=== PATIENT | male | born 1970 ===

== ENCOUNTER 2020-06-09 01:25 | Emergency (ER) | payer MEDICARE ==
[2020-06-09 08:23] VITALS: BP 152/93
--- NOTE | 2020-06-09 09:43 | Emergency Department Report ---
HPI - General Chief Complaint: Dyspnea/Respdistress Time Seen by Provider: 06/09/20 09:22 - HPI HPI: Room 19 The patient is a 50-year-old male present with a chief complaint of needing home O2. The patient was admitted to this hospital for COVID-19 pneumonia, stayed in the hospital for approximately 15 days and discharged yesterday. The patient states when he went home his oxygen tank had not been delivered to him as scheduled in his oxygen level was running low. The patient states he felt short of breath without the oxygen but in the ED with supplemental O2 he feels like his normal self. ED Past Medical Hx - Past Medical History Hx Hypertension: Yes Hx Arthritis: Yes Hx Asthma: Yes - Surgical History Past Surgical History?: Yes Hx Cholecystectomy: Yes (2015) - Family History Family history: no significant - Social History Smoking Status: Never Smoker Substance Use Type: None - Medications Home Medications: Home Medications Medication Instructions Recorded Confirmed Last Taken Type Aspirin 325 mg PO DAILY 05/27/20 05/27/20 Unknown History Baclofen 20 mg PO TID 05/27/20 05/27/20 Unknown History Chlorthalidone [Thalitone] 25 mg PO QDAY 05/27/20 05/27/20 Unknown History Gabapentin [Neurontin] 800 mg PO TID 05/27/20 05/27/20 Unknown History NexIUM 40 mg PO DAILY 05/27/20 05/27/20 Unknown History Nortriptyline [Pamelor] 25 mg PO HS 05/27/20 05/27/20 Unknown History Potassium Chloride [K-Dur] 20 meq PO DAILY 05/27/20 05/27/20 Unknown History Tamsulosin [Flomax] 0.4 mg PO DAILY 05/27/20 05/27/20 Unknown History ALBUTEROL NEB's [Proventil 0.083% 2.5 mg IH Q4HRT PRN #1 nebu 06/08/20 Unknown Rx NEBS] Acetaminophen [Acetaminophen TAB] 650 mg PO Q4H PRN tablet 06/08/20 Unknown Rx Arformoterol Nebu [Brovana Nebu] 15 mcg IH Q12HRT #1 ml 06/08/20 Unknown Rx Budesonide [Pulmicort Respules] 0.5 mg IH Q12HRT #1 nebu 06/08/20 Unknown Rx busPIRone [Buspar] 10 mg PO BID PRN #20 tablet 06/08/20 Unknown Rx guaiFENesin/CODEINE [Robitussin AC] 10 ml PO Q4H PRN #1 oral.liqd 06/08/20 Unknown Rx predniSONE [Deltasone] 10 mg PO .TAPER #30 tablet 06/08/20 Unknown Rx ED Review of Systems ROS: Stated complaint: JAS Other details as noted in HPI Physical Exam - Physical Exam Vital Signs: Vital Signs 06/09/20 06/09/20 01:41 08:19 Temperature 98.6 F 97.7 F Pulse Rate 89 50 L Respiratory 22 20 Rate Blood Pressure 131/80 Blood Pressure 152/93 [Left] O2 Sat by Pulse 91 97 Oximetry Physical Exam: GENERAL: The patient is well-developed well-nourished male sitting on stretcher not appearing to be in acute distress. [] HEENT: Normocephalic. Atraumatic. Extraocular motions are intact. Patient has moist mucous membranes. NECK: Supple. Trachea midline CHEST/LUNGS: Clear to auscultation. There is no respiratory distress noted. HEART/CARDIOVASCULAR: Regular. There is no tachycardia. There is no gallop rub or murmur. ABDOMEN: Abdomen is soft, nontender. Patient has normal bowel sounds. There is no abdominal distention. SKIN: There is no rash. There is no edema. There is no diaphoresis. NEURO: The patient is awake, alert, and oriented. The patient is cooperative. The patient has normal speech MUSCULOSKELETAL: There is no evidence of acute injury. ED Course Vital Signs 06/09/20 06/09/20 01:41 08:19 Temperature 98.6 F 97.7 F Pulse Rate 89 50 L Respiratory 22 20 Rate Blood Pressure 131/80 Blood Pressure 152/93 [Left] O2 Sat by Pulse 91 97 Oximetry ED Medical Decision Making - Medical Decision Making Case management has arranged for O2 to be delivered. O2 company will notify patient when oxygen has been delivered and family will pick him up from the hospital - Differential Diagnosis Needs supplemental O2 Critical care attestation.: If time is entered above; I have spent that time in minutes in the direct care of this critically ill patient, excluding procedure time. ED Disposition Clinical Impression: Requires continuous at home supplemental oxygen Disposition: DC-01 TO HOME OR SELFCARE Is pt being admited?: No Does the pt Need Aspirin: No Condition: Stable Additional Instructions: Return to the emergency department should you develop worsening symptoms, inability to tolerate food or liquids, high fever or any other concerns Referrals: PRIMARY CARE, [Primary Care Provider] - 3-5 Days Time of Disposition: 10:02
== END 2020-06-09 11:08 | disposition home or self-care (01) ==
LOC: ED 01:25
DX: J45.909 Unspecified asthma, uncomplicated (principal); I10 Essential (primary) hypertension; M19.90 Unspecified osteoarthritis, unspecified site; Z99.81 Dependence on supplemental oxygen; Z79.82 Long term (current) use of aspirin; Z79.899 Other long term (current) drug therapy
CPT/HCPCS: 93005; 99282